=== PATIENT | male | born 1965 | race Caucasian/White ===

== ENCOUNTER 2017-03-01 11:45 | Day surgery (SDC) | payer BC ==
[2017-02-25 14:28] LABS: HEMATOCRIT 41.4 % (40.0-51.0)
[2017-02-25 14:40] LABS: BUN (BLOOD UREA NITROGEN) 5 MG/DL (6-23); CALCIUM, SERUM 8.8 MG/DL (8.5-10.4); CHLORIDE, SERUM 107 MMOL/L (96-112); CREATININE 0.76 MG/DL (0.70-1.30); GFR AFRICAN AMERICAN 124 ML/MIN (>=60); GFR NON AFRICAN AMERICAN 107 ML/MIN (>=60); GLUCOSE, SERUM 88 MG/DL (60-99); SODIUM, SERUM 141 MMOL/L (135-148)
[2017-02-25 14:41] LABS: CO2 (CARBON DIOXIDE) 30 MMOL/L (24-34)
--- NOTE | ~2017-03-01 | OP ---
Record Of Operation [facility] [address] [place]. [address] NAME: TAMERA MAY : 69 STATUS : [facility]#: [id number] AGE: 51 ADM/REG DATE : 03/01/17 MR#: [id number] REPORT SERV DATE: 03/01/17 DICTATED BY: VARGHESE CONNELLY DATE: 03/01/17 REPORT STATUS : Draft TRANSCRIBED BY: WALLY DATE: 03/01/17 DATE OF PROCEDURE: 03/01/2017 PREOPERATIVE DIAGNOSIS: Lesion involving the interarytenoid mucosa with epistaxis. POSTOPERATIVE DIAGNOSIS: Lesion involving the interarytenoid mucosa with epistaxis. PROCEDURE: Microdirect laryngoscopy with excision and biopsy of the lesion involving the interarytenoid mucosa with rigid nasal endoscopy with control of epistaxis. ANESTHESIA: General endotracheal. ESTIMATED BLOOD LOSS: 10 mL. INTRAOPERATIVE FLUIDS: 700 mL crystalloid. INTRAOPERATIVE FINDINGS: Mucosal mass involving the interarytenoid mucosa, more to the right side of midline. 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 This was confirmed on frozen section. The patient did have moderate edema of the vocal cords on both sides, which I suspect to be related to laryngopharyngeal reflux. He did have two bleeding sources identified in the right side of his nose which were treated with silver nitrate cautery. With his right-sided nasal septal deflection, I was concerned for scarring between the site of cautery and his right inferior turbinate. I did, therefore, perform an inferior turbinate outfracture on the right side and I have recommended the use of Afrin nasal spray to the right side of the nose twice a day over the next three days. OPERATIVE PROCEDURE: The patient was identified in the holding room, transported to the operating room. In the operating room, patient was placed on the operating table in the supine position. Following induction of anesthesia, the patient was intubated without difficulty. The table was then turned 90 degrees for the operative procedure. An anterior commissure scope was used to examine the anterior portion of the true vocal cords. There was moderate edema of the true vocal cords on both sides with no focal lesions identified to suggest the presence of neoplasia. A Dedo laryngoscope was then inserted with elevation of the endotracheal tube for examination of the posterior glottic mucosa. With the scope positioned for examination of the interarytenoid mucosa, the Dedo laryngoscope was suspended. 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 The mucosa around this lesion was sharply incised. The lesion was then elevated in a submucosal plane. The tissue was sent to Surgical Pathology for histologic evaluation, including frozen section. Pledgets soaked in epinephrine were then applied to the biopsy site. The Dedo laryngoscope was removed, and the table was returned to its original position for the next portion of the operative procedure. Afrin-soaked pledgets were placed to the nose, bilaterally. On examination of the left side of the nose, there was no bleeding source identified. There was a right sided nasal septal deflection with bloody oozing occurring posterior to the deflection in the cartilaginous nasal septum. This was treated with silver nitrate.; however, there was persistent bleeding arising in the nose. A rigid nasal Record Of Operation [address] [place]. [address] NAME: TAMERA MAY : 69 STATUS : [facility]#: [id number] AGE: 51 ADM/REG DATE : 03/01/17 MR#: [id number] REPORT SERV DATE: 03/01/17 DICTATED BY: VARGHESE CONNELLY DATE: 03/01/17 REPORT STATUS : Draft TRANSCRIBED BY: WLALY DATE: 03/01/17 endoscopy was performed which revealed a second bleeding source adjacent to the area of previous cautery with no bleeding source identified more posteriorly in the airway with the narrow opening between the right inferior turbinate and the site of bleeding identified more posterior along the nasal septum, I was unable to pass silver nitrate to this area without making contact with the right inferior turbinate. I did, therefore, perform an outfracture of the right inferior turbinate which did allow access to cauterize the nasal septum without cauterizing the inferior turbinate. With this cautery performed, the bleeding from the nose subsided. The table was then returned to its original position. The pathologist did confirm the presence of a papilloma on the excised specimen. The Dedo laryngoscope was reinserted and the epinephrine soaked pledget was removed. At this point, there was mild residual bloody oozing with concern for causing scarring and stenosis in this area, I opted not to perform electrocautery; however, gentle silver nitrate cautery was performed to this area. An epinephrine-soaked pledget was once again applied. Upon removing the pledget, there was no residual bleeding identified. The Dedo laryngoscope was removed, and the table was returned to its original position. The patient was awakened from anesthesia, extubated in the operating room and transported to the recovery room in good condition. The patient tolerated the procedure well. There were no apparent complications. Specimens included mucosal lesion from the interarytenoid mucosa with frozen section demonstrated the presence of a papilloma. MUKUND/WALLY Varghese Connelly M.D. / [id number] CC: Varghese Connelly M.D.
[2017-03-15] MEDS ORDERED: ENBREL25 MG SC (12:12)
[2017-03-15] MEDS ORDERED: NEUR300 PO (12:13)
[2017-03-15] MEDS ORDERED: NORCO1 TA1 PO (12:14)
[2017-03-15] MEDS ORDERED: PRILOSEC40 MG PO (12:14)
[2017-03-15] MEDS ORDERED: PROAIR HFA INH (12:16)
[2017-03-15] MEDS ORDERED: RHINOCORT INH (12:42)
== END 2017-03-01 16:36 | disposition home or self-care (01) ==
LOC: SDC 11:45
PROVIDERS: Otolaryngology
PROC: 09SL8ZZ Reposition Nasal Turbinate, Via Natural or Artificial Opening Endoscopic (ICD-10-PCS; 2017-03-01)
PROC: 0CBS8ZX Excision of Larynx, Via Natural or Artificial Opening Endoscopic, Diagnostic (ICD-10-PCS; principal; 2017-03-01 13:15)
PROC: 0W3Q8ZZ Control Bleeding in Respiratory Tract, Via Natural or Artificial Opening Endoscopic (ICD-10-PCS; 2017-03-01 13:15)
DX: J38.7 Other diseases of larynx (principal); J45.909 Unspecified asthma, uncomplicated; K74.60 Unspecified cirrhosis of liver; Z79.899 Other long term (current) drug therapy
CPT/HCPCS: 80048; 85014; 85018; 88305; 88307; 88331; A9270-GY; J2710; J3010

== ENCOUNTER 2017-03-16 14:49 | Day surgery (SDC) | payer BC ==
[2017-03-15 17:20] LABS: HEMATOCRIT 37.9 % (40.0-51.0); HEMOGLOBIN 12.6 g/dL (13.6-17.8)
--- NOTE | ~2017-03-16 | OP ---
Record Of Operation [facility] [address] [place]. [address] NAME: TAMERA MAY JR : 69 STATUS : [facility]#: [id number] AGE: 51 ADM/REG DATE : 03/16/17 MR#: [id number] REPORT SERV DATE: 03/26/17 DICTATED BY: VARGHESE CONNELLY DATE: 03/26/17 REPORT STATUS : Draft TRANSCRIBED BY: MODL DATE: 03/26/17 DATE OF PROCEDURE: 03/16/2017 PREOPERATIVE DIAGNOSIS: Deviated nasal septum with right-sided epistaxis. POSTOPERATIVE DIAGNOSIS: Deviated nasal septum with right-sided epistaxis. PROCEDURE: Septoplasty with nasal endoscopy for control of epistaxis. SURGEON: Dr. Varghese Connelly. ANESTHESIA: General endotracheal. ESTIMATED BLOOD LOSS: 100 mL. INTRAOPERATIVE FLUIDS: 700 mL crystalloid. INTRAOPERATIVE FINDINGS: Bilateral nasal septal deformity. Moderate bleeding during the septoplasty arising from the floor of the nose, posteriorly, which I suspected have been the source of the patient's epistaxis. Rigid nasal endoscopy was performed which revealed no definitive bleeding source following completion of the septoplasty. With the patient's bleeding history, however, I did opt to place Merocel packs, bilaterally, at the end of his operative procedure. OPERATIVE PROCEDURE: The patient was identified in the holding room, transported to the operating room. In the operating room, the patient was placed in operating room table in the supine position. Following induction of anesthesia, the patient was intubated without difficulty. The balloon pack was then removed from the right side of his nose with no active bleeding following pack removal. Afrin-soaked pledgets were placed to the nose, bilaterally. The patient was draped in preparation for his nasal surgery. The Afrin packs were removed. Once again, there was no active bleeding following removal of the Afrin packs. To improve access to the posterior nasal airway on the right side, a septoplasty was performed at this point. A Darrell incision was created in the left side of the nose. A mucoperichondrial flap was developed and extended posteriorly over the bony cartilaginous junction. There was some scarring and irregularity of the mucoperichondrial flaps and cartilage, consistent with previous nasal fracture. I was, however, able to keep the mucoperichondrial flap on the left side completely intact. The dissection was then carried posteriorly onto the bony nasal septum. An incision was created through the quadrangular cartilage, leaving a greater than 1 cm caudal strut. A mucoperichondrial flap was then developed in a similar fashion in the right side of the nose. A strip of deflected cartilage was removed from the floor of the nose, removing a width of approximately 8 mm of cartilage from this area. The quadrangular cartilage was then divided from the bony nasal septum, leaving a strong dorsal attachment. This did allow the remaining quadrangular cartilage to return to the midline, and no further cartilaginous resection was required. There was a bilateral deformity of the bony nasal septum, consistent with a prior history of nasal trauma. There was also extremely thick and hard bone in the nasal septum also Record Of Operation [facility] [id number] [place]. [address] NAME: TAMERA MAY JR : 69 STATUS : [facility] PAT#: [id number] AGE: 51 ADM/REG DATE : 03/16/17 MR#: [id number] REPORT SERV DATE: 03/26/17 DICTATED BY: VARGHESE CONNELLY DATE: 03/26/17 REPORT STATUS : Draft TRANSCRIBED BY: WALLY DATE: 03/26/17 consistent with this history. The bony deflection was excised. Upon removing the bony portion of the vomer, there was a modest amount of bleeding arising from along the floor of the nose, which was controlled with cautery. On elevating the mucoperiosteal flap on the right side, a rent was created along the midportion of the nasal septum; however, the flap on the left side remained completely intact. The mucoperichondrial flaps were placed and the septum was noted to be in the midline. The [place] incision was closed with interrupted 4-0 chromic suture. A quilting stitch was placed. Following completion of the septoplasty, a rigid nasal endoscopy was performed. There was mild bloody oozing from the patient's septoplasty; however, there was no definitive bleeding source identified. With the bleeding the patient had been experiencing, I opted to place Merocel packs to both sides of the nose. The Merocel packs were dipped in triple antibiotic ointment prior to placement in the nasal airway. The packs were inflated with normal saline. At the end of the operative procedure, there was no significant bleeding. The patient was awakened from anesthesia, extubated in the operating room, and transported to the recovery room in good condition. The patient tolerated the procedure well. There were no apparent complications. Specimens include nasal septal bone and cartilage. MUKUND/WALLY Varghese Connelly M.D. / [id number] CC: Varghese Connelly M.D.
[~2017-03-16 14:49] MED LIST: ENBREL25 MG SC; NEUR300 PO; NORCO1 TA1 PO; PRILOSEC40 MG PO; PROAIR HFA INH; RHINOCORT INH
== END 2017-03-16 21:20 | disposition home or self-care (01) ==
LOC: SDC 14:49
PROVIDERS: Otolaryngology
PROC: 0W3Q8ZZ Control Bleeding in Respiratory Tract, Via Natural or Artificial Opening Endoscopic (ICD-10-PCS; 2017-03-16)
PROC: 09SM0ZZ Reposition Nasal Septum, Open Approach (ICD-10-PCS; principal; 2017-03-16 16:15)
DX: J34.2 Deviated nasal septum (principal); J45.909 Unspecified asthma, uncomplicated; M06.9 Rheumatoid arthritis, unspecified; Z91.030 Bee allergy status; Z90.49 Acquired absence of other specified parts of digestive tract; Z87.891 Personal history of nicotine dependence; Z85.820 Personal history of malignant melanoma of skin; Z87.01 Personal history of pneumonia (recurrent); Z86.010 Personal history of colon polyps; Z98.890 Other specified postprocedural states; Z79.899 Other long term (current) drug therapy
CPT/HCPCS: 71010; 85014; 85018; 88300; A9270-GY; J0330; J0690; J2250; J2405; J3010